=== PATIENT | female | born 1960 | race Caucasian/White ===

== ENCOUNTER 2018-06-18 10:37 | Outpatient (CLI) | payer MEDICAID, SELFPAY ==
--- NOTE | 2018-06-18 10:17 | DI.COMBO_ITS ---
SYMPTOM/DIAGNOSIS: BILATERAL KNEE PAIN BILATERAL KNEES: 06/18/18 Multiple views of the knees were obtained. There is mild narrowing of the medial tibiofemoral cartilaginous joint spaces bilaterally and there is bilateral mild lateral patellar subluxation, left greater than right with slight narrowing of the lateral patellofemoral cartilaginous joint spaces. Mild hypertrophic spurring of the bones fo the knee noted most prominent medially. CONCLUSION: DJD involving both knees as described above.
== END 2018-06-18 10:57 ==
PROVIDERS: PCP Physician Assistant; Visit Provider Physician Assistant
DX: M25.561 Pain in right knee (principal); M25.562 Pain in left knee; M17.0 Bilateral primary osteoarthritis of knee
CPT/HCPCS: 73562

== ENCOUNTER 2019-02-16 15:32 | Outpatient (REF) | payer MEDICAID, SELFPAY ==
[2019-02-16 20:35] LABS: Anion Gap 10.2 mmol/L (3-11); BUN 19 mg/dL (7-18); CO2 25.8 mmol/L (21.0-32.0); CREATININE 0.86 mg/dL (0.55-1.02); Calcium 8.8 mg/dL (8.5-10.1); Calculated LDL 208 mg/dL; Chloride 105 mmol/L (98-107); Cholesterol 296 mg/dL (50-200); Glucose 101 mg/dL (70-100); HDL Cholesterol 60 mg/dL (40-60); Potassium 4.3 mmol/L (3.5-5.1); Sodium 141 mmol/L (136-145); Triglyceride 142 mg/dL (30-150)
== END 2019-02-16 15:52 ==
LOC: NCHCN 15:32
PROVIDERS: PCP Physician Assistant; Visit Provider Nurse Practitioner Family
DX: E78.5 Hyperlipidemia, unspecified (principal)
CPT/HCPCS: 80048; 80061

== ENCOUNTER 2019-02-24 10:35 | Outpatient (REF) | payer MEDICAID, SELFPAY ==
[2019-02-24 19:48] LABS: ALT 20 U/L (14-59); AST 21 U/L (15-37)
== END 2019-02-24 10:55 ==
LOC: NCHCN 10:35
PROVIDERS: PCP Physician Assistant; Visit Provider Nurse Practitioner Family
DX: E78.5 Hyperlipidemia, unspecified (principal)
CPT/HCPCS: 84450; 84460

== ENCOUNTER 2020-04-18 12:41 | Outpatient (REF) | payer MEDICAID, SELFPAY ==
[2020-04-18 20:49] LABS: ALT 33 U/L (14-59); AST 26 U/L (15-37); Calculated LDL 94 mg/dL (<100); Cholesterol 170 mg/dL (<200); Glucose 95 mg/dL (74-106); HDL Cholesterol 58 mg/dL (40-60); Triglyceride 90 mg/dL (<150)
== END 2020-04-18 13:01 ==
LOC: NCHCN 12:41
PROVIDERS: PCP Physician Assistant; Visit Provider Nurse Practitioner Family
DX: E78.5 Hyperlipidemia, unspecified (principal); Z13.1 Encounter for screening for diabetes mellitus; Z00.00 Encounter for general adult medical examination without abnormal findings
CPT/HCPCS: 80061; 82947; 84450; 84460

== ENCOUNTER 2021-04-17 20:56 | Outpatient (REF) | payer MEDICAID, SELFPAY ==
[2021-04-17 21:21] LABS: ALT 42 U/L (14-59); AST 30 U/L (15-37); Albumin 3.9 g/dL (3.4-5.0); Alkaline Phosphatase 128 U/L (46-116); Anion Gap 9.6 mmol/L (3-11); BUN 20 mg/dL (7-18); Bilirubin, Total 0.4 mg/dL (0.2-1.0); CO2 25.4 mmol/L (21.0-32.0); CREATININE 0.9 mg/dL (0.55-1.02); Calcium 8.9 mg/dL (8.5-10.1); Calculated LDL 123 mg/dL (<100); Chloride 104 mmol/L (98-107); Cholesterol 215 mg/dL (<200); Glucose 100 mg/dL (74-106); HDL Cholesterol 49 mg/dL (40-60); Potassium 4.3 mmol/L (3.5-5.1); Sodium 139 mmol/L (136-145); Total Protein 7.3 g/dL (6.4-8.2); Triglyceride 216 mg/dL (<150)
== END 2021-04-17 20:57 | disposition home or self-care (01) ==
LOC: NCHCN 20:56
PROVIDERS: PCP Physician Assistant; Visit Provider Nurse Practitioner Family
DX: E78.5 Hyperlipidemia, unspecified (principal); Z00.00 Encounter for general adult medical examination without abnormal findings
CPT/HCPCS: 80053; 80061

== ENCOUNTER 2022-04-22 14:19 | Outpatient (REF) | payer MEDICAID, SELFPAY ==
[2022-04-22 19:10] LABS: ALT 36 U/L (14-59); AST 30 U/L (15-37); Albumin 3.9 g/dL (3.4-5.0); Alkaline Phosphatase 111 U/L (46-116); Anion Gap 7.8 mmol/L (3-11); BUN 23 mg/dL (7-18); Bilirubin, Total 0.6 mg/dL (0.2-1.0); CO2 27.2 mmol/L (21.0-32.0); CREATININE 0.8 mg/dL (0.55-1.02); Calcium 9.3 mg/dL (8.5-10.1); Calculated LDL 126 mg/dL (<100); Chloride 105 mmol/L (98-107); Cholesterol 208 mg/dL (<200); Glucose 98 mg/dL (74-106); HDL Cholesterol 61 mg/dL (40-60); Potassium 4.3 mmol/L (3.5-5.1); Sodium 140 mmol/L (136-145); Total Protein 7.3 g/dL (6.4-8.2); Triglyceride 107 mg/dL (<150)
== END 2022-04-22 14:20 | disposition home or self-care (01) ==
LOC: NCHCN 14:19
PROVIDERS: PCP Physician Assistant; Visit Provider Nurse Practitioner Family
DX: E78.5 Hyperlipidemia, unspecified (principal)
CPT/HCPCS: 80053; 80061

== ENCOUNTER 2023-01-28 18:57 | Outpatient (REF) | payer MEDICAID, SELFPAY ==
--- NOTE | 2023-01-28 18:30 | PAPFT_PTH ---
PATIENT: Lynn Fatima LOC: [facility]#:[id number] AGE/SX: 62/F ROOM: RE01/28/[address]: Favian Villalobos : 1960 BED: DIS: 01/28/2023 SPEC #: [id number] RECD: 01/29/23 12:42 STATUS: ROGELIO RECasie #: [id number] BRANDON: 01/28/23 18:[address]: Favian Villalobos DEPT: [facility] Cytology RECD BY: Rosalia Liu ENTERED: 01/29/23 12:43 SP TYPE: PAPFT OTHR DR: Evelin Emanuel Tissues: 1 - CX/ENDOCX FOR PAP SMEARS Procedures: PAP THIN PREP/[facility] Screening HPV DNA PROBE Comments: [id number]
== END 2023-01-28 18:58 | disposition home or self-care (01) ==
LOC: NCHCN 18:57
PROVIDERS: PCP Nurse Practitioner Family; Visit Provider Internal Medicine
DX: Z12.4 Encounter for screening for malignant neoplasm of cervix (principal); Z01.419 Encounter for gynecological examination (general) (routine) without abnormal findings
CPT/HCPCS: 88142; 87624

== ENCOUNTER 2023-01-28 18:59 | Outpatient (REF) | payer MEDICAID, SELFPAY ==
[2023-01-28 21:15] LABS: ALT 26 U/L (14-59); AST 29 U/L (15-37); Alkaline Phosphatase 109 U/L (46-116); Bilirubin, Direct 0.1 mg/dL (0.0-0.2); Bilirubin, Total 0.5 mg/dL (0.2-1.0); Total Protein 7.4 g/dL (6.4-8.2)
[2023-02-04 09:31] LABS: CA 125 4 U/mL (<30)
== END 2023-01-28 19:00 | disposition home or self-care (01) ==
LOC: NCHCN 18:59
PROVIDERS: PCP Nurse Practitioner Family; Visit Provider Internal Medicine
DX: R14.0 Abdominal distension (gaseous) (principal)
CPT/HCPCS: 80076; 86304; 82378; 87086

== ENCOUNTER 2023-02-12 10:35 | Outpatient (REF) | payer MEDICAID, SELFPAY ==
[2023-02-16 14:31] LABS: Helicobacter pylori Ag, Feces Positive (Negative)
== END 2023-02-12 10:36 | disposition home or self-care (01) ==
LOC: NCHCN 10:35
PROVIDERS: Visit Provider Nurse Practitioner Family
DX: R10.13 Epigastric pain (principal)
CPT/HCPCS: 87338

== ENCOUNTER 2023-03-19 09:17 | Outpatient (REF) | payer MEDICAID, SELFPAY ==
[2023-03-19 19:49] LABS: Vitamin B12 741 pg/mL (193-986)
== END 2023-03-19 09:18 | disposition home or self-care (01) ==
LOC: NCHCN 09:17
PROVIDERS: PCP Nurse Practitioner Family; Visit Provider Nurse Practitioner Family
DX: K13.0 Diseases of lips (principal)
CPT/HCPCS: 82607

== ENCOUNTER 2023-04-22 14:58 | Outpatient (REF) | payer MEDICAID, SELFPAY ==
[2023-04-22 20:37] LABS: ALT 33 U/L (14-59); AST 25 U/L (15-37); Albumin 3.7 g/dL (3.4-5.0); Alkaline Phosphatase 113 U/L (46-116); Anion Gap 7.8 mmol/L (3-11); BUN 21 mg/dL (7-18); Bilirubin, Total 0.6 mg/dL (0.2-1.0); CO2 27.2 mmol/L (21.0-32.0); CREATININE 0.9 mg/dL (0.55-1.02); Calcium 9.1 mg/dL (8.5-10.1); Calculated LDL 103 mg/dL (<100); Chloride 106 mmol/L (98-107); Cholesterol 187 mg/dL (<200); Estimated GFR 72.73 (mL/min/1.73m2); Glucose 96 mg/dL (74-106); HDL Cholesterol 60 mg/dL (40-60); Potassium 4.1 mmol/L (3.5-5.1); Sodium 141 mmol/L (136-145); Total Protein 7.1 g/dL (6.4-8.2); Triglyceride 120 mg/dL (<150)
== END 2023-04-22 14:59 | disposition home or self-care (01) ==
LOC: NCHCN 14:58
PROVIDERS: PCP Nurse Practitioner Family; Visit Provider Nurse Practitioner Family
DX: E78.5 Hyperlipidemia, unspecified (principal)
CPT/HCPCS: 80053; 80061

== ENCOUNTER 2023-06-03 18:23 | Outpatient (REF) | payer MEDICAID, SELFPAY ==
[2023-06-03 20:11] LABS: HCT 39.3 % (36.0-46.0); HGB 13.6 g/dL (11.2-15.7); MCH 32.5 pg (27.0-33.0); MCHC 34.6 % (32.0-36.0); MCV 94 fL (80-95); MPV 9.7 fL (8.0-11.0); Platelet Count 229 10^3/uL (130-400); RBC 4.19 10^6/uL (3.93-5.22); RDW 11.9 % (11.7-14.6); RDW-SD 41.1 fL; WBC 7.77 10^3/uL (4.4-10.8)
== END 2023-06-03 18:24 | disposition home or self-care (01) ==
LOC: NCHCN 18:23
PROVIDERS: PCP Nurse Practitioner Family; Visit Provider Nurse Practitioner Family
DX: R14.0 Abdominal distension (gaseous) (principal)
CPT/HCPCS: 85027

== ENCOUNTER 2023-07-06 10:02 | Outpatient (REF) | payer MEDICAID, SELFPAY ==
[2023-07-17 09:14] LABS: Fungus Smear See Comments
== END 2023-07-06 10:03 | disposition home or self-care (01) ==
LOC: NCHCN 10:02
PROVIDERS: PCP Nurse Practitioner Family; Referring Provider Nurse Practitioner Family; Visit Provider Nurse Practitioner Family
DX: K13.0 Diseases of lips (principal)
CPT/HCPCS: 87102; 87206

== ENCOUNTER 2024-05-17 09:36 | Outpatient (REF) | payer MEDICAID, SELFPAY ==
[2024-05-17 20:09] LABS: ALT 35 U/L (14-59); AST 30 U/L (15-37); Albumin 3.6 g/dL (3.4-5.0); Alkaline Phosphatase 127 U/L (46-116); Anion Gap 9.2 mmol/L (3-11); BUN 20 mg/dL (7-18); Bilirubin, Total 0.55 mg/dL (0.2-1.0); CO2 25.8 mmol/L (21.0-32.0); CREATININE 0.9 mg/dL (0.55-1.02); Calculated LDL 137 mg/dL (<100); Chloride 108 mmol/L (98-107); Cholesterol 219 mg/dL (<200); Estimated GFR 72.28 (mL/min/1.73m2); Glucose 102 mg/dL (74-106); HDL Cholesterol 61 mg/dL (40-60); Potassium 4.3 mmol/L (3.5-5.1); Sodium 143 mmol/L (136-145); Total Protein 7.3 g/dL (6.4-8.2); Triglyceride 108 mg/dL (<150)
== END 2024-05-17 09:37 | disposition home or self-care (01) ==
LOC: NCHCN 09:36
PROVIDERS: PCP Nurse Practitioner Family; Visit Provider Nurse Practitioner Family
DX: E78.5 Hyperlipidemia, unspecified (principal)
CPT/HCPCS: 80053; 80061